=== PATIENT | male | born 1960 | race Caucasian/White ===

== ENCOUNTER 2018-04-23 18:05 | Observation (INO) | payer MEDICARE ==
--- NOTE | 2018-04-23 19:27 | ED ---
Skin Complaint - HPI Summary HPI Summary: This patient is a 57 year old male presenting to [facility] accompanied by family with a chief complaint of insect bite on his upper right arm since 7 weeks ago. Patient states that he was bitten by an unknown bug. Patient states he flicked it away from him, but didnt get a good look at it. The first two weeks after the bite, it was only mildly swollen and itchy. The bite became progressively more red and swollen after the first two weeks. Patient went to Urgent Care yesterday and was given antibiotics, but presents to the ED as the bite did not heal and proceeded to spread up his arm. The pain is rated 4/10 in severity. Symptoms aggravated by nothing. Symptoms alleviated by nothing. Patient additionally reports redness, itchiness, and warmness. - History of Current Complaint Chief Complaint: EDRashSkinAbscess Time Seen by Provider: 04/23/18 19:14 Stated Complaint: RASH Hx Obtained From: Patient Onset/Duration: Started Days Ago, Still Present Skin Exposure Onset/Duration: Weeks Ago Timing: Constant, Lasting Weeks Onset Severity: Mild Current Severity: Moderate Pain Intensity: 4 Pain Scale Used: 0-10 Numeric Skin Location: Chest, Arm - right Character: Swelling, Redness Aggravating Symptom(s): Nothing Alleviating Symptom(s): Nothing - Allergy/Home Medications Allergies/Adverse Reactions: Allergies Allergy/AdvReac Type Severity Reaction Status Date / Time No Known Allergies Allergy Verified 04/23/18 18:13 PMH/Surg Hx/FS Hx/Imm Hx Previously Healthy: Yes Endocrine/Hematology History: Reports: Hx Thyroid Disease Denies: Hx Diabetes Cardiovascular History: Reports: Hx Hypertension Denies: Hx Pacemaker/ICD Respiratory History: Denies: Hx Asthma Sensory History: Denies: Hx Hearing Aid Psychiatric History: Denies: Hx Panic Disorder - Surgical History Surgery Procedure, Year, and Place: FOOT ORIF Infectious Disease History: No Infectious Disease History: Denies: Traveled Outside the [place] in Last 30 Days - Family History Known Family History: Negative: Hypertension - Social History Lives: With Family Alcohol Use: None Hx Substance Use: No Substance Use Type: Reports: None Hx Tobacco Use: No Smoking Status (MU): Never Smoked Tobacco Review of Systems Negative: Fever Positive: Rash, Other - redness, warmness All Other Systems Reviewed And Are Negative: Yes Physical Exam - Summary Physical Exam Summary: Appearance: Well-appearing, Well-nourished, lying in bed comfortable Skin: Warm, dry, right arm erythema from the right upper chest across the shoulder down the arm, and into the proximal forearm, warm, not indurated, not fluctuant. Eyes: sclera anicteric, no conjunctival pallor ENT: mucous membranes moist Neck: deferred Respiratory: No signs of respiratory distress Cardiovascular: Appears well perfused, pulses are nml Abdomen: deferred Musculoskeletal: Moving all 4 extremities without obvious discomfort Neurological: Awake and alert, mentation is normal, speech is fluent and appropriate Psychiatric: affect is normal, does not appear anxious or depressed Triage Information Reviewed: Yes Vital Signs On Initial Exam: Initial Vitals Temp Pulse Resp BP Pulse Ox 99.9 F 92 18 120/83 98 04/23/18 18:07 04/23/18 18:07 04/23/18 18:07 04/23/18 18:07 04/23/18 18:07 Vital Signs Reviewed: Yes Diagnostics - Vital Signs Vital Signs Temp Pulse Resp BP Pulse Ox 04/23/18 18:07 99.9 F 92 18 120/83 98 - Laboratory Result Diagrams: 04/25/18 07:23 04/25/18 07:23 Lab Statement: Any lab studies that have been ordered have been reviewed, and results considered in the medical decision making process. Course/Dx - Course Assessment/Plan: This patient is a 57 year old male presenting to [facility] accompanied by family with a chief complaint of insect bite on his upper right arm since 7 weeks ago. The first two weeks after the bite, it was only mildly swollen and itchy. The bite became progressively more red and swollen after the first two weeks. Bloodwork Obtained. Urinalysis Obtained. In the ED course the patient was given Vancomycin, Clindamycin. We discussed patient care with Dr. Akers at 192 and they agreed to admit the patient. Patient will be admitted and given IV antibiotics. The patient is agreeable with this plan. - Diagnoses Provider Diagnoses: Cellulitis of right upper extremity - Physician Notifications Discussed Care Of Patient With: Ofe Akers - Hospitalist Time Discussed With Above Provider: 19:29 - We discussed patient care with Dr. Akers at 192 and they agreed to admit the patient Discharge - Sign-Out/Discharge Documenting (check all that apply): Patient Departure - Discharge Plan Condition: Stable Disposition: ADMITTED TO [facility] - Billing Disposition and Condition Condition: STABLE Disposition: Admitted to [facility] - Attestation Statements Document Initiated by Pascual: Yes Documenting Pascual: Anjali Vargas Provider For Whom Pascual is Documenting (Include Credential): Noah Oakley MD [employer] Attestation: Anjali Winters scribed for Noah Oakley MD on 04/26/18 at 1345. Scribe Documentation Reviewed: Yes Provider Attestation: The documentation as recorded by the Anjali moore accurately reflects the service I personally performed and the decisions made by me, Noah Oakley MD
[2018-04-23] MEDS ORDERED: Vancomycin(*) 1,000 MG in NS 0.9% 250 ML* 250 ML IVPB ONE (19:28)
[2018-04-23] MEDS ORDERED: Vancomycin(*) 1,000 MG BAG/ADDV IVPB ONE (19:45)
[2018-04-23] MEDS ORDERED: NS 0.9% 250 ML* 250 ML ONE (19:45)
[2018-04-23 19:46] LABS: ABS Basophils 0 10^3/ul (0-0.2); ABS Eosinophils 0.1 10^3/ul (0-0.6); ABS Lymphocytes 1.1 10^3/ul (1.0-4.8); ABS Monocytes 0.4 10^3/ul (0-0.8); ABS Neutrophils 3.2 10^3/ul (1.5-7.7); ABS Nucleated RBC 0 10^3/ul; Eosinophil % 1.5 % (0-6); Hematocrit 40 % (42-52); Hemoglobin 13.3 g/dl (14.0-18.0); Lymphocyte % 21.9 % (25-47); Mean Corpuscular HGB Conc 34 g/dl (31-36); Mean Corpuscular Hemoglobin 31 pg (27-31); Mean Corpuscular Volume 92 fL (80-94); Mean Platelet Volume 7.7 um3 (7.4-10.4); Nucleated Red Blood Cells % 0.2; Platelet Count 229 10^3/ul (150-450); Red Blood Count 4.33 10^6/ul (4.00-5.40); Red Cell Distribution Width 14 % (10.5-15); White Blood Count 4.8 10^3/ul (3.5-10.8)
[2018-04-23 20:09] LABS: EGFR Non-African American 74.8 (>60)
[2018-04-23] MEDS ORDERED: Lisinopril TAB* 10 MG PO ONE (20:17)
[2018-04-23] MEDS ORDERED: Acetaminophen TAB* 325 MG PO PRN (20:18)
[2018-04-23] MEDS ORDERED: Ondansetron INJ* 2 MG/ML VIAL IV PRN (20:19)
[2018-04-23] MEDS: Clindamycin 600 MG IVPREMIX(* 600 MG/50 ML SDV IV SCH (22:09)
[2018-04-23] MEDS: Heparin VIAL(*) 5000 UNITS/ML VIAL (FIVE THOUSAND) SUBCUT SCH (22:09)
--- NOTE | 2018-04-23 23:56 | HP ---
CC: Ulises Vasquez MD * [facility] MEDICINE HISTORY AND PHYSICAL: DATE OF ADMISSION: 04/23/18 PRIMARY CARE PHYSICIAN: Ulises Vasquez MD ATTENDING PHYSICIAN: Ofe Akers DO * (dictation provided by Katie Ramirez NP ) CHIEF COMPLAINT: Right arm redness and pain. HISTORY OF PRESENT ILLNESS: Mr. Rodriguez is a 57-year-old male with past medical history of hypertension, hyperlipidemia, and hypothyroidism, who presents to the hospital today with concern for worsening right arm pain and swelling with diagnosis of cellulitis despite outpatient antibiotic treatment. Mr. Rodriguez states that he had what he describes as a bug bite to his right upper arm near his shoulder about 7 weeks ago. At that point, it was just a small red spot and he essentially disregarded it. About 2 weeks later, he noted that the area was a little bit red. Over the ensuing 5 weeks, the redness has spread up over his shoulder. He was having worsening redness and itching and by this week and then pain in the arm up into the shoulder. For this reason, [facility]. At that point, he was diagnosed with cellulitis and was prescribed Keflex. He has taken at least 6 doses since that time and despite this, he has had worsening redness which now extends past the elbow and up over onto his chest down towards his right nipple. He reported that he was very cold at times at home and seems to be describing having some chills. He did not take his temperature. He notes no other complaints. He denies chest pain, shortness of breath, nausea, vomiting, diarrhea, abdominal pain. In the emergency room Mr. Rodriguez was confirmed to have extensive erythema with edema and warmth in the right upper extremity from just below the elbow to up over the right shoulder and onto the right chest wall. His vitals are stable. His temperature is 99.9, he is not tachycardic or tachypneic, his lactic acid is 0.8. CRP 20.82, WBC 4.8. PAST MEDICAL HISTORY: 1. Hypertension. 2. Hyperlipidemia. 3. Hypothyroidism. 4. Gout. PAST SURGICAL HISTORY: History of ankle surgery 40 years ago. MEDICATIONS: The patient is confirms that he is on a blood pressure medication and thyroid medication, cholesterol medication, and a gout medication, but he does not know the names of these or the dosages. ALLERGIES: No known drug allergies. FAMILY HISTORY: Reviewed, noncontributory. SOCIAL HISTORY: No report of alcohol, tobacco or drug use. The patient lives with his , who would be the healthcare proxy. REVIEW OF SYSTEMS: A 14-point review of systems was completed with Mr. Rodriguez and all those not mentioned above were negative. PHYSICAL EXAMINATION GENERAL APPEARANCE: Mr. Rodriguez is sitting in the bed. He is in no acute distress. His family is at the bedside. He speaks [place] well, but more complicated conversations are supported with the help of his son. VITAL SIGNS: Temperature 99.9; pulse rate 75; respiratory rate 18; O2 saturation 95% on room air; blood pressure 118/78. HEENT: Extraocular movements are intact. LUNGS: Clear to auscultation bilaterally with no accessory muscle use and good aeration. HEART: S1, S2. No murmurs, rubs and regular. ABDOMEN: Soft, nontender, with bowel sounds positive x4. EXTREMITIES: No cyanosis. There is edema with erythema on the right upper extremity extending from just below the elbow to up over the shoulder and down the chest wall to about the level of the right nipple. He has good ROM at the right shoulder, elbow, and wrist. NEURO: He is alert. He is oriented x3. He moves all extremities equally. There is no facial asymmetry or focal weakness. SKIN: Again, this redness is noted, but there are no areas of induration. No drainage. DIAGNOSTIC STUDIES/LAB DATA: WBC 4.8, hemoglobin 13.3, hematocrit 40, platelet count 229,000, APT is 32.8. Sodium 139, potassium 3.6, chloride 103, carbon dioxide 29, BUN 15, creatinine 1.02, glucose 101, lactic acid 0.8, CRP 20.82. ASSESSMENT AND PLAN: Mr. Rodriguez is a 57-year-old male with past medical history of hypertension, hyperlipidemia, who presents to the emergency room with worsening redness, the pain, and edema to his right upper extremity with concern for failure of outpatient antibiotics for cellulitis. Plans are for observation in the hospital for the followin. Cellulitis: The patient does not currently meet the definition for sepsis, and his lactic acid is normal. Blood cultures have been sent. He is afebrile at this point. In conversation, he does report a history in the past of abscesses that drained and I question whether or not perhaps he has a history of MRSA. There is no suggestion of abscess on exam today. Plan for treatment with clindamycin. 2. Hypertension: The patient is unaware of the exact blood pressure medications that he takes, but per our electronic medical record, he has been on lisinopril, hydrochlorothiazide at night. I will order a one-time dose of lisinopril tonight until we can verify his medications. I have asked for his family to provide those when they return to the hospital. 3. Hyperlipidemia: Again, medication reconciliation is pending. 4. DVT prophylaxis is with heparin subcu. 5. Code status is full code. TIME SPENT: Approximately 60 minutes were spent on the admission of this patient, more than half time was spent at the bedside reviewing the events leading up to this hospitalization, performing the physical examination, and reviewing my plan of care. KATIE RAMIREZ NP [id number]/[facility] #: [id number] KAYLA
[2018-04-24] MEDS: Clindamycin 600 MG IVPREMIX(* 600 MG/50 ML SDV IV SCH ×4 (03:32→21:18)
[2018-04-24] MEDS: Heparin VIAL(*) 5000 UNITS/ML VIAL (FIVE THOUSAND) SUBCUT SCH ×3 (05:53→22:29)
[2018-04-24] MEDS ORDERED: Lisinopril/HCTZ 20/12.5(NF) TAB PO SCH (09:00)
[2018-04-24] MEDS: Atorvastatin* 10 MG TAB PO SCH (09:55)
[2018-04-24] MEDS: amLODIPine TAB* 5 MG PO SCH (09:55)
[2018-04-24] MEDS: Lisinopril TAB* 10 MG PO SCH ×2 (09:55→21:19)
[2018-04-24] MEDS: Levothyroxine TAB* 100 MCG TAB PO SCH (09:55)
[2018-04-24] MEDS: Hydrochlorothiazide TAB* 25 MG PO SCH ×2 (09:55→21:18)
[2018-04-24] MEDS: Allopurinol TAB* 300 MG PO SCH (09:55)
[2018-04-24] MEDS ORDERED: hydrOXYzine HCL TAB* 50 MG PO PRN (16:37)
--- NOTE | 2018-04-24 16:43 | PN ---
Subjective Date of Service: 04/24/18 Interval History: Pt seen and examined. Meds and labs reviewed. CC: Complained of pruritus on right knee ROS: Denied DILLARD/dizziness, F/C, N/V, CP, SOB, increased cough, sputum production , abd pain, diarrhea, constipation, dysuria, myalgias, arthralgias, throat pain. The rest of the 14 point ROS are unremarkable. PHYSICAL EXAM: GEN APPEARANCE: Awake, not in acute distress HEENT: NC/AT, PERRLA, moist oral mucosa, (-) throat erythema NECK: Soft, supple, (-) cervical LAD, (-)JVD HEART: S1S2 WNL, RRR, No MRG CHEST: CTA, BL, GAE, No W/R/R ABD: Soft, ND/NT, NABS 4x Q EXT: No C/C/RUE cellulitis from drawn borders has significantly improved edema, erythema, warmth, and tenderness SKIN: Warm to touch; some excoriation on right knee PSYCH: No active psychosis, hallucinations, depression, SI/HI Objective Active Medications: Acetaminophen (Tylenol Tab*) 650 mg PO Q6H PRN PRN Reason: pain/fever Allopurinol (Zyloprim Tab*) 300 mg PO DAILY [facility] Last Admin: 04/24/18 09:55 Dose: 300 mg Amlodipine Besylate (Norvasc Tab*) 5 mg PO DAILY [facility] Last Admin: 04/24/18 09:55 Dose: 5 mg Atorvastatin Calcium (Lipitor*) 10 mg PO DAILY [facility] Last Admin: 04/24/18 09:55 Dose: 10 mg Heparin Sodium (Porcine) (Heparin Vial(*)) 5,000 units SUBCUT Q8HR [facility] Last Admin: 04/24/18 15:53 Dose: Not Given Hydrochlorothiazide (Hydrodiuril Tab*) 12.5 mg PO BID [facility] Last Admin: 04/24/18 09:55 Dose: 12.5 mg Hydroxyzine HCl (Atarax Tab*) 50 mg PO Q6H PRN PRN Reason: Pruritus/anxiety Clindamycin HCl/Dextrose (Cleocin 600 Mg Ivpremix(*) Sdv) 600 mg in 50 mls @ 100 mls/hr IV Q6H [facility] Last Admin: 04/24/18 16:06 Dose: 100 mls/hr Levothyroxine Sodium (Synthroid Tab*) 100 mcg PO DAILY@0600 [facility] Last Admin: 04/24/18 09:55 Dose: 100 mcg Lisinopril (Prinivil Tab*) 20 mg PO BID [facility] Last Admin: 04/24/18 09:55 Dose: 20 mg Ondansetron HCl (Zofran Inj*) 4 mg IV Q6H PRN PRN Reason: NAUSEA Oxygen Devices in Use Now: None Result Diagrams: 04/23/18 19:38 04/23/18 19:38 Assess/Plan/Problems-Billing Assessment: - Patient Problems (1) Cellulitis of right upper extremity Current Visit: Yes Status: Acute Code(s): L03.113 - CELLULITIS OF RIGHT UPPER LIMB SNOMED Code(s): 189162284 Comment: -Improved -Continue IV Clindamycin -Continue to follow cultures (2) Pruritic rash Current Visit: Yes Status: Acute Code(s): L28.2 - OTHER PRURIGO SNOMED Code(s): 88888691 Comment: -Placed on PRN Hydroxyzine -Continue to observe (3) HTN (hypertension) Current Visit: Yes Status: Acute Code(s): I10 - ESSENTIAL (PRIMARY) HYPERTENSION SNOMED Code(s): 52757614 Comment: -Well-controlled -Continue Amlodipine, HCTZ, and Lisinopril (4) Hyperlipidemia Current Visit: Yes Status: Acute Code(s): E78.5 - HYPERLIPIDEMIA, UNSPECIFIED SNOMED Code(s): 80235278 Comment: -Continue Atorvastatin (5) Hypothyroidism Current Visit: Yes Status: Acute Code(s): E03.9 - HYPOTHYROIDISM, UNSPECIFIED SNOMED Code(s): 62754320 Comment: -Continue Levothyroxine -Will check TSH in AM (6) DVT prophylaxis Current Visit: Yes Status: Acute Code(s): MOK4286 - SNOMED Code(s): 927354738 Comment: -Continue Heparin SQ Status and Disposition: -For possible D/C in AM
[2018-04-25] MEDS: Clindamycin 600 MG IVPREMIX(* 600 MG/50 ML SDV IV SCH ×2 (04:24→10:00)
[2018-04-25] MEDS: Heparin VIAL(*) 5000 UNITS/ML VIAL (FIVE THOUSAND) SUBCUT SCH (04:40)
[2018-04-25] MEDS: Levothyroxine TAB* 100 MCG TAB PO SCH (05:17)
[2018-04-25 07:51] LABS: Hematocrit 39 % (42-52); Hemoglobin 13.2 g/dl (14.0-18.0); Mean Corpuscular HGB Conc 34 g/dl (31-36); Mean Corpuscular Hemoglobin 31 pg (27-31); Mean Corpuscular Volume 91 fL (80-94); Mean Platelet Volume 7.6 um3 (7.4-10.4); Platelet Count 184 10^3/ul (150-450); Red Blood Count 4.29 10^6/ul (4.00-5.40); Red Cell Distribution Width 14 % (10.5-15)
[2018-04-25 08:11] LABS: EGFR Non-African American 73.9 (>60)
[2018-04-25] MEDS: Lisinopril TAB* 10 MG PO SCH (09:52)
[2018-04-25] MEDS: Hydrochlorothiazide TAB* 25 MG PO SCH (09:52)
[2018-04-25] MEDS: Atorvastatin* 10 MG TAB PO SCH (09:52)
[2018-04-25] MEDS: Allopurinol TAB* 300 MG PO SCH (09:52)
[2018-04-25] MEDS: amLODIPine TAB* 5 MG PO SCH (09:52)
[2018-04-25 12:12] VITALS: BP 132/85
--- NOTE | 2018-04-25 12:51 | DS ---
CC: Ofe Akers DO; Noah Oakley MD; Ulises Vasquez MD DISCHARGE SUMMARY: DATE OF ADMISSION: 04/23/18 DATE OF DISCHARGE: 04/25/18 DISCHARGE DIAGNOSES: 1. Cellulitis of the right upper extremity and shoulder, improved. 2. Pruritic rash on right knee with excoriation, improved. 3. History of hypertension. 4. History of gout. 5. History of hypothyroidism. 6. History of hyperlipidemia. DISCHARGE MEDICATIONS: 1. Tylenol 650 mg p.o. q.6 p.r.n. 2. Allopurinol 300 mg p.o. daily. 3. Amlodipine 5 mg p.o. daily. 4. Atorvastatin 10 mg p.o. daily. 5. Hydroxyzine 50 mg p.o. q.6 p.r.n. 6. Synthroid 100 mcg p.o. daily. 7. Clindamycin 300 mg p.o. 4 times a day for 8 days. 8. Ibuprofen 800 mg p.o. q.6 p.r.n. 9. Zestoretic 20/12.5 mg p.o. b.i.d. 10. Floranex 1 tab p.o. daily for 2 weeks. HISTORY OF PRESENT ILLNESS/HOSPITAL COURSE: The patient is a 57-year-old gentleman with a history of hypertension, hypothyroidism, and gout, who presents with worsening right arm and shoulder pain, swelling and erythema. He mentions that he has been prescribed antibiotics when [facility]18 and was given Keflex and has taken at least 6 doses; however, he feels that his cellulitis has been worsening and hence his presentation to the ED for failed outpatient therapy. He was admitted for failed outpatient therapy of cellulitis and blood cultures have so far been negative. The patient has been afebrile for 2 days and cellulitis is significantly improved with clindamycin and the patient wants to go home. The patient was advised to follow up and/or call his PCP within 3 days post DC to make a postdischarge appointment. If his symptoms resume or develop new ones or feel unwell for any reason, he was advised to call his PCP and if his PCP cannot entertain him due to scheduling issues alone, to call [facility] if his issue is considered non-emergent. He was also advised to lose some weight and to discuss how to safely do this with his PCP. He was advised to call my office regarding any questions, concerns, or further clarifications regarding his discharge plans and/or prescriptions and to take his medications as prescribed. REVIEW OF SYSTEMS: The patient denied any recent headaches, dizziness, fevers, chills, nausea, vomiting, chest pain, abdominal pain, diarrhea, constipation, pain, and/or increased frequency on urination, myalgias, arthralgias, throat pain, or new skin lesions. The rest of the 14-point review of systems is otherwise unremarkable. PHYSICAL EXAMINATION: Reveals the most recent vital signs of records with blood pressure of 109/78, 97.9 degrees Fahrenheit, 73 beats per minute heart rate, 17 per minute respiratory rate, saturating at 92% room air. General Appearance: The patient is awake, alert, and oriented x3, not in acute distress. HEENT: Normocephalic, atraumatic. PERRLA. Extraocular muscles intact. Negative for icterus. Moist oral mucosa. Negative throat erythema. Neck is soft, supple with no cervical lymphadenopathy. No JVD. Heart: S1, S2 within normal limits. Regular rate and rhythm. No murmurs, rubs, or gallops. Chest: Clear to auscultation bilaterally. Good air entry. No wheezes, rales, or rhonchi. Abdomen is soft, nondistended, nontender. Normoactive bowel sounds x4 quadrants. Extremities: No cyanosis, clubbing. His right upper extremity has some erythema, but no longer obviously edematous nor tender and his cellulitis in comparison to the drawn borders on admission has significantly improved. Psychiatric: No active psychosis, depression, suicidal or homicidal ideation. Skin is warm to touch with no other new skin lesions identified other than what was described. TIME SPENT: The total time spent evaluating the patient, reviewing pertinent data, and appropriate documentation is greater than 30 minutes. [id number]/[facility] #: [id number] [facility]
== END 2018-04-25 12:45 | disposition home or self-care (01) ==
LOC: ED 18:05 → MED 20:19
PROVIDERS: ADMIT Internal Medicine; ATTEND Student in an Organized Health Care Education/Training Program
DX: L03.113 Cellulitis of right upper limb (principal); R21 Rash and other nonspecific skin eruption; L28.2 Other prurigo; I10 Essential (primary) hypertension; M10.9 Gout, unspecified; E03.9 Hypothyroidism, unspecified; E78.5 Hyperlipidemia, unspecified
CPT/HCPCS: 36415; 80053; 83605; 83735; 84100; 84443; 85025; 85027; 85730; 86140; 87040; 96365; 96366; 96375; 99284; A9270-GY; G0378; J3370